=== PATIENT | female | born 1960 | race African-American/Black ===

== ENCOUNTER 2021-01-06 11:03 | Emergency (ER) | payer MEDICARE, OTHER ==
[2021-01-06] MEDS ORDERED: Prochlorperazine 10 MG/2 ML VIAL ONE (11:28)
[2021-01-06] MEDS ORDERED: Magnesium 2 GM/50 ML BAG (IN WATER) ONE (11:28)
[2021-01-06] MEDS ORDERED: diphenhydrAMINE 50 MG/ML VIAL ONE (11:28)
== END 2021-01-06 15:00 | disposition home or self-care (01) ==
LOC: BURERS 11:03
DX: G43.909 Migraine, unspecified, not intractable, without status migrainosus (principal)
CPT/HCPCS: 96365; 96375; J0780; J1200; J3475